=== PATIENT | female | born 1950 | race Two or more races ===

== ENCOUNTER → 2024-03-22 | Outpatient (CLI) | payer MEDICARE, MEDICAID, SELFPAY ==
--- NOTE | 2024-03-22 12:20 | XR_ITS ---
Examination: Bone densitometry Date and time of exam:March 22, 2024 1232 hrs. Indications: Menopause age 38% history osteoporosis vitamin D several months rheumatoid arthritis diagnosis Technique: Lumbar spine and hip total bone mineralization values of an calculated. Peak reference and age match control results have been displayed. Findings: Lumbar spine total bone mineralization is0.949 gm/cm2. This is 0.9 standard deviations below peak reference. This is 1.4 standard deviations above age-matched controls. Hip total bone mineralization is 0.597 gm/cm2 This is 2.7 standard deviations below peak reference. This is 1.0 standard deviations below age-matched controls Impression: There is normal mineralization based on lumbar spine measurements. There is osteoporosis based on hip measurements Lumbar mineralization is increased 4.8% compared with May 21, 2021 Hip mineralization is increased 11.4% compared with May 21, 2021
== END | disposition home or self-care (01) ==
PROVIDERS: PCP Physician Assistant; Referring Provider Physician Assistant; Visit Provider Physician Assistant
DX: M81.0 Age-related osteoporosis without current pathological fracture (principal)
CPT/HCPCS: 77080

== ENCOUNTER → 2024-04-11 | Outpatient (CLI) | payer MEDICARE, MEDICAID, SELFPAY ==
--- NOTE | 2024-04-11 | XR_ITS ---
Examination: Diagnostic digital mammography, unilateral, left Computer aided detection 3-D breast Tomosynthesis, unilateral Date and time of exam: April 11, 2024 10:40 AM INDICATIONS: Mammogram September 16, 2023 15 mm oval mass retroareolar region left breast Technique: Nonmagnified MLO, CC views of the left breast have been obtained, reconstructed from 3-D Tomosynthesis images. R2 computer aided detection program utilized for evaluation of suspicious masses and/or abnormal calcifications. 3-D Tomosynthesis images obtained. Findings: The breast is heterogeneously dense, which may obscure small masses Focal asymmetry remains retroareolar region left breast, 24 mm Impression: BI-RADS category 0: Incomplete: Need additional imaging evaluation This patient should return for repeat dedicated left breast sonography with the radiologist in attendance
--- NOTE | 2024-04-11 11:30 | XR_ITS ---
Examination: Breast ultrasound, unilateral, left complete Date and time of exam: April 11, 2019 5:10 AM INDICATIONS: Left breast sonogram September 16, 2023 2:00 retroareolar oval mass 13 x 12 mm Technique: Real-time scales scale ultrasonographic imaging performed left breast including all 4 quadrants as well as nipple retroareolar and axillary region. Findings: No cystic or solid mass currently IMPRESSION: BI-RADS Category 1: Negative study
== END | disposition home or self-care (01) ==
PROVIDERS: PCP Physician Assistant; Referring Provider Physician Assistant; Visit Provider Physician Assistant
DX: N63.42 Unspecified lump in left breast, subareolar (principal)
CPT/HCPCS: 76641; 77061; 77065; G0279

== ENCOUNTER → 2024-05-31 | Outpatient (CLI) | payer MEDICARE, MEDICAID, SELFPAY ==
[2024-05-31 16:40] LABS: Basophils % (Auto) 0 % (0-2.5); Eosinophils # (Auto) 0.1 Thou/mm3 (0.0-0.5); Eosinophils % (Auto) 1 % (0-10); Hematocrit 28.2 % (36.0-46.0); Hemoglobin 9.5 g/dL (12.0-16.0); Immature Granulocytes % (Auto) 0 % (0-0); Immature Granulocytes Auto 0.02 Thou/mm3 (0.00-0.00); Lymphocytes # (Auto) 1.5 Thou/mm3 (1.0-4.8); Lymphocytes % (Auto) 23 % (10-50); Mean Corpuscular HGB Conc 33.7 g/dl (31.0-37.0); Mean Corpuscular Hemoglobin 27.9 pg (25.0-35.0); Mean Corpuscular Volume 83 fL (80-100); Monocytes # (Auto) 0.5 Thou/mm3 (0.0-0.8); Monocytes % (Auto) 8 % (0-12); Neutrophils # (Auto) 4.5 Thou/mm3 (1.8-7.7); Neutrophils % (Auto) 67 % (37-80); Nucleated Red Blood Cell % 0 /100 WBC (0); Platelet Count 304 Thou/mm3 (140-440); RDW Standard Deviation 48.2 fL (36.4-46.3); Red Blood Count 3.41 Miln/mm3 (4.00-5.20); White Blood Count 6.7 Thou/mm3 (3.6-11.0)
[2024-05-31 17:07] LABS: Anion Gap 8 (7-16); BUN/Creatinine Ratio 27 Ratio (12-20); Blood Urea Nitrogen 24 mg/dL (9-23); Calcium 9.4 mg/dL (8.3-10.6); Carbon Dioxide 27.1 mMol/L (20.0-31.0); Chloride 103 mMol/L (98-107); Creatinine (Component) 0.9 mg/dL (0.6-1.3); Glucose 147 mg/dL (74-106); Osmolality,Calculated 282 (275-295); Potassium 4.2 mMol/L (3.4-5.1); Sodium 138 mMol/L (136-145); eGFR > 60 See Note
[2024-05-31 17:28] LABS: Partial Thromboplastin Time 27.2 Seconds (22.0-36.0)
== END | disposition home or self-care (01) ==
LOC: COPL 16:05
PROVIDERS: PCP Physician Assistant; Referring Provider Internal Medicine; Visit Provider Internal Medicine
DX: I25.10 Atherosclerotic heart disease of native coronary artery without angina pectoris (principal); I48.91 Unspecified atrial fibrillation
CPT/HCPCS: 36415; 80048; 85025; 85610; 85730

== ENCOUNTER 2024-09-22 10:40 | Emergency (ER) | payer MEDICARE, MEDICAID, SELFPAY ==
[2024-09-22 10:41] VITALS: BMI 24.5
[2024-09-22 10:54] VITALS: BP 158/76; PULSE 88; RESP 18; TEMP 37.2; O2SAT 99
--- NOTE | 2024-09-22 11:10 | XR_ITS ---
Examination: Shoulder,left, 3 views Technique: Shoulder AP internal rotation, AP external rotation, Y view shoulder, 3 views Exam date and time :September 22, 2024 1137 hours INDICATION: Patient fell out of bed today with injury to the shoulder, shoulder pain. FINDINGS: Old healed fracture humeral neck Severe osteopenia No acute fracture IMPRESSION: No acute fracture Given the severe osteopenia, repeat this study short-term 1-2 days as clinically warranted
--- NOTE | 2024-09-22 11:12 | PD.EDUPEX ---
Upper Extremity Injury RME/HPI General Chief Complaint: Extremity Injury, Upper Stated Complaint: LEFT SHOULDER PAIN S/P FALL Time Seen by Provider: 09/22/24 10:47 Source: patient Arrival date/time: 09/22/24 10:40 73-year-old female with a history of hyperlipidemia, hypertension, type 2 diabetes, presents to the emergency room with a chief complaint of left shoulder pain after a ground-level fall where her left knee slipped and she fell and hit herself against the door. Patient denies any head trauma or head injury Mode of arrival: ambulatory Limitations: no limitations Related Data Home Medications ?Medication ?Instructions ?Recorded ?Confirmed clopidogrel 75 mg tablet (Plavix) 75 mg PO DAILY 30 days ##0 11/10/10 04/30/20 atorvastatin 10 mg tablet (Lipitor) 10 mg PO HS #0 tabs 02/22/15 04/30/20 sertraline 50 mg tablet (Zoloft) 50 mg PO HS #0 tabs 02/22/15 04/30/20 sitagliptin phosphate 100 mg 100 mg PO QDAY #0 tabs 09/17/15 04/30/20 tablet (Januvia) aspirin 81 mg tablet,delayed 81 mg PO QDAY 07/14/17 04/30/20 release metformin 1,000 mg tablet 1,000 mg PO BID 07/14/17 04/30/20 hydrocodone 5 mg-acetaminophen 325 1 tab PO QID PRN Pain 09/07/17 04/30/20 mg tablet ([place]) amlodipine 2.5 mg tablet 2.5 mg PO QDAY 04/23/20 04/30/20 canagliflozin 300 mg tablet 300 mg PO QAM 04/23/20 04/30/20 (Invokana) gabapentin 300 mg capsule 300 mg PO DAILY 04/23/20 04/30/20 Previous Rx's ?Medication ?Instructions ?Recorded insulin glargine 100 unit/mL 20 unit (0.2 mL) subcut QPM #0 mL 05/05/20 subcutaneous solution (Lantus U-100 Insulin) hydrocodone 5 mg-acetaminophen 325 0.5 tab PO Q6H PRN pain #7 tabs 09/11/20 mg tablet ibuprofen 600 mg tablet 600 mg PO Q6H PRN pain #60 tabs 09/26/23 Allergies Allergy/AdvReac Type Severity Reaction Status Date / Time No Known Allergies Allergy Verified 09/22/24 10:43 Review of Systems Review of Systems Systems Reviewed: All systems reviewed, normal except as documented Constitutional Constitutional: Reports system reviewed and no additional complaints, except as documented, Denies fatigue, Denies fever(s), Denies headache(s) and Denies weakness Eyes Eyes: Reports system reviewed and no additional complaints, except as documented, Denies blurry vision and Denies change in vision ENT Ears, Nose, Mouth, and Throat: Reports system reviewed and no additional complaints, except as documented, Denies otalgia, Denies headache(s), Denies nasal congestion, Denies throat swelling and Denies vertigo Cardiovascular Cardiovascular: Reports system reviewed and no additional complaints, except as documented, Denies chest pain, Denies dyspnea and Denies dyspnea on exertion Respiratory Respiratory: Reports system reviewed and no additional complaints, except as documented, Denies chest congestion, Denies cough, Denies dyspnea, Denies dyspnea on exertion and Denies wheezing Gastrointestinal Gastrointestinal: Reports system reviewed and no additional complaints, except as documented, Denies abdominal pain, Denies cramping, Denies nausea and Denies vomiting Genitourinary Genitourinary: Reports system reviewed and no additional complaints, except as documented Musculoskeletal Musculoskeletal: Reports system reviewed and no additional complaints, except as documented, Reports arthralgias, Denies back pain, Reports joint swelling and Reports limited range of motion Integumentary/Breasts Skin/Breast: Reports system reviewed and no additional complaints, except as documented and Denies wounds Neurologic Neurologic: Reports system reviewed and no additional complaints, except as documented, Denies confusion, Denies headache(s), Denies lack of coordination, Denies vertigo and Denies weakness Psychiatric Psychiatric: Reports system reviewed and no additional complaints, except as documented, Denies anxiety, Denies confusion, Denies depression, Denies paranoia, Denies suicidal ideation and Denies tactile hallucinations Endocrine Endocrine: Reports system reviewed and no additional complaints, except as documented and Denies fatigue Hematologic/Lymphatic Hematologic/Lymphatic: Reports system reviewed and no additional complaints, except as documented and Denies lymphadenopathy Allergic/Immunologic Allergic/Immunologic: Reports system reviewed and no additional complaints, except as documented, Denies throat swelling, Denies urticaria and Denies wheezing Past Medical History Past Medical History NEUROLOGIC: Negative Neurological Disorders or Seizures CARDIAC: Positive Cardiac Disorders, Coronary Artery Disease, Hypercholesterolemia and Hypertension; Negative Myocardial Infarction, Atrial Fibrillation or Congestive Heart Failure RESPIRATORY: Negative Chronic Obstructive Pulmonary Disease (COPD), Asthma, Pneumonia or Sleep Apnea GASTROINTESTINAL: Positive Gastrointestinal Disorders and Gall Bladder Disease GENITOURINARY: Negative Genitourinary Disorders or Renal Disease MUSCULOSKELETAL: Positive Musculoskeletal Disorders, Arthritis, Rheumatoid Arthritis and Osteoporosis ENT: Negative Cataracts ENDOCRINE: Positive Endocrine Disorders and Diabetes Mellitus Type 2; Negative Diabetes Mellitus Type 1 HEMATOLOGIC: Negative Blood Disorders, Anemia or Sickle Cell Disease OTHER HISTORY: Positive Chicken Pox; Negative Blood Transfusions, Anesthesia Reactions, Chemotherapy, MRSA, Clostridium Difficile or Cancer Surgical History SURGICAL: Positive Cardiac Surgery, Coronary Stent, Cardiac Catheterization, Abdominal Surgery and Hysterectomy; Negative Pacemaker or Joint Replacement Social History SMOKING STATUS: Never smoker ED Exam General Limitations: Present no limitations General appearance: Present alert and in no apparent distress Head Head exam: Present atraumatic Eye Eye exam: Present normal appearance, PERRL and EOMI ENT ENT exam: Present normal exam, normal oropharynx and mucous membranes moist Neck Neck exam: Present normal inspection, full ROM and trachea midline Chest Chest inspection: Present normal inspection and symmetric chest wall rise Respiratory Respiratory exam: Present normal lung sounds bilaterally Cardiovascular Cardiovascular exam: Present regular rate, normal rhythm and normal heart sounds Abdominal Exam Abdominal exam: Present soft and normal bowel sounds Extremities Exam Extremities exam: Present normal inspection and full ROM Expanded Upper Extremity Exam Shoulder exam: Present tenderness, swelling and tenderness over AC joint; Absent full ROM Back Exam Back exam: Present normal inspection and full ROM Neurological Exam Neurological exam: Present alert, oriented X3 and CN II-XII intact Psychiatric Psychiatric exam: Present normal affect and normal mood Skin Skin exam: Present warm, dry, intact and normal color Course Quality Measures none Orders Category Date Time Status sling [Splint / Immobilizer] STAT Care 09/22/24 11:10 Active XR clavicle LT Stat Exams 09/22/24 11:13 Completed XR shoulder LT min 2V Stat Exams 09/22/24 11:10 Completed Acetaminophen Tab [Tylenol Tab] Med 09/22/24 11:17 Discontinued 650 mg PO X1 ONE Ketorolac Inj [Toradol Inj] Med 09/22/24 11:10 Discontinued 30 mg IM X1 ONE Vital Signs Vital signs: Vital Signs Temperature 98.9 F 09/22/24 10:54 Pulse Rate 88 09/22/24 10:54 Respiratory Rate 18 09/22/24 10:54 Blood Pressure 158/76 H 09/22/24 10:54 Pulse Oximetry (%) 99 09/22/24 10:54 Oxygen Delivery Method Room Air 09/22/24 10:54 O2 saturation 99% within normal limits Extremity Injury MDM Narrative MDM Narrative:: 73-year-old female with a history of hyperlipidemia, hypertension, type 2 diabetes, presents to the emergency room with a chief complaint of left shoulder pain after a ground-level fall where her left knee slipped and she fell and hit herself against the door. Patient denies any head trauma or head injury Patient is hemodynamically stable and in no apparent distress Physical examination shows tenderness and pain to the AC joint on the left shoulder. The patient is able to lift it up to her chest but cannot lift her arm above her head. Patient states when she does not move the shoulder she is having no pain. There is no obvious deformity X-ray of the shoulder and clavicle were negative for any acute fractures or dislocations. The patient was educated to follow-up with her primary care provider if the signs and symptoms continue as there could be some ligament damage or tears Patient was discharged and educated to follow-up with primary care provider in the next 24 to 48 hours and return to the emergency room for any evidence of worsening signs or symptoms Patient data External records reviewed:: [facility] previous records Clinical information provided by:: patient Social determinants that could affect healthcare access:: none Patient has the following chronic illnesses:: Hypertension, hyperlipidemia, type 2 diabetes How is presenting disease/condition affected by chronic disease/condition?: uneffected by Evaluation data The following diagnostics were reviewed and interpreted by me:: lab results and radiology exam(s) Lab and/or radiology exams considered but not ordered:: Labs and radiology exams considered and ordered Interpretation Summary: Left shoulder [id number]: Old healed fracture humeral neck Severe osteopenia No acute fracture IMPRESSION: No acute fracture Given the severe osteopenia, repeat this study short-term 1-2 days as clinically warranted Medications / Prescriptions Medications or Prescriptions considered but not ordered:: Medication given Medication administrations:: Medication Administration History Discontinued Medications Acetaminophen (Acetaminophen 325 Mg Tablet) 650 mg PO X1 ONE Stop: 09/22/24 11:18 Last Admin: 09/22/24 11:33 Dose: 650 mg Documented By: EF Ketorolac Tromethamine (Ketorolac Inj 60 Mg/2 Ml Vial) 30 mg IM X1 ONE Stop: 09/22/24 11:11 Last Admin: 09/22/24 11:34 Dose: Not Given Documented By: EF Non-Admin Reason: Cancelled by Provider Medication given Consultations Consultation(s) initiated? (list below): No Diagnosis Upper Extremity Injury Differential Diagnosis: dislocation of shoulder, fracture of clavicle and other (Shoulder fracture/shoulder sprain) Most likely diagnosis given after review of the tests above:: Shoulder sprain Admission Indicated Admission indicated?: not indicated Admission Request Was there a request for admission?: No Disposition Plan Disposition Plan: Discharge Discharge Attestation Discharge Attestation: The patient and all family members were given an opportunity to ask questions and understood the discharge instructions. Discharge instructions specifically effects, indications for sooner follow up or return to the emergency department, and the expected course of current diagnosis. Patient condition: Stable Discharge Plan Plan Patient Disposition: HOME (Self Care) Discharge Disposition comment: Stable Prescriptions/Referrals Prescriptions/Med Rec: No Action clopidogrel [Plavix] 75 MG tablet 75 mg PO DAILY 30 Days Qty: 0 atorvastatin [Lipitor] 10 MG tablet 10 mg PO HS Qty: 0 sertraline [Zoloft] 50 MG tablet 50 mg PO HS Qty: 0 Januvia 100 MG tablet 100 mg PO QDAY Qty: 0 amlodipine 2.5 mg Tablet 2.5 mg PO QDAY gabapentin 300 mg Capsule 300 mg PO DAILY Invokana 300 mg Tablet 300 mg PO QAM Lantus U-100 Insulin 100 unit/mL Solution 20 unit SUBCUT QPM Qty: 0 0RF hydrocodone-acetaminophen 5-325 mg tablet 0.5 tab PO Q6H MDD 3 PRN (Reason: pain) Qty: 7 0RF aspirin 81 mg Tablet,Delayed Release (Dr/Ec) 81 mg PO QDAY metformin 1,000 mg Tablet 1,000 mg PO BID hydrocodone-acetaminophen [[place]] 5-325 mg Tablet 1 tab PO QID PRN (Reason: Pain) ibuprofen 600 mg tablet 600 mg PO Q6H PRN (Reason: pain) Qty: 60 0RF Referrals: Heidi Martins PA-C [Primary Care Provider] - In 1 week Problem List Clinical Impression: Shoulder sprain Patient/Caregiver Discharge Instructions Education Materials: ED Shoulder Sprain Additional Instructions: Please follow-up with your primary care provider in the next 24 to 48 hours The x-rays of your shoulder were completed and were negative for any acute fracture or dislocation. If your signs symptoms continue you will need to have an MRI of your shoulder to assess for any ligament damage or tears For any evidence of worsening signs or symptoms return to the emergency room immediately Print Language: Finnish Stand Alone Forms: Marcelle Award Info., Patient Portal Info Letter PA/HAND UMBRELLA TIPPER Supervising Physician PA/HAND UMBRELLA TIPPER Supervising Physician: Dr. Wisdom
--- NOTE | 2024-09-22 11:13 | XR_ITS ---
Examination: Clavicle 2 views, left Technique: Clavicle AP, angled up AP, 2 views Exam date and time: September 22, 2024 1137 hours INDICATIONS: Patient fell out of bed today with injury to the clavicle, clavicle pain FINDINGS: Severe osteopenia. No clavicle fracture. No AC joint separation IMPRESSION: No clavicle fracture
[2024-09-22] MEDS: ACETAMINOPHEN 325 MG TABLET 650 MG PO (11:33)
== END 2024-09-22 12:45 | disposition home or self-care (01) ==
PROVIDERS: Emergency Provider Family Medicine; PCP Physician Assistant
DX: S43.402A Unspecified sprain of left shoulder joint, initial encounter (principal); W18.30XA Fall on same level, unspecified, initial encounter; E11.9 Type 2 diabetes mellitus without complications; E78.5 Hyperlipidemia, unspecified; I10 Essential (primary) hypertension; M85.812 Other specified disorders of bone density and structure, left shoulder
CPT/HCPCS: 73000; 73030; 99283; A9270

== ENCOUNTER → 2025-03-02 | Outpatient (CLI) | payer MEDICARE, MEDICAID, SELFPAY | END | disposition home or self-care (01) | LOC: SLDO 14:24 | PROVIDERS: Referring Provider Urology; Visit Provider Urology | DX: N39.0 Urinary tract infection, site not specified (principal) | CPT/HCPCS: 87077; 87086; 87186 ==

== ENCOUNTER → 2025-03-02 | Outpatient (BNVA) | payer MEDICARE, MEDICAID, SELFPAY | END | disposition home or self-care (01) | PROVIDERS: PCP Physician Assistant; Referring Provider Physician Assistant; Visit Provider Urology | DX: N39.0 Urinary tract infection, site not specified (principal); E11.9 Type 2 diabetes mellitus without complications; I10 Essential (primary) hypertension; I25.10 Atherosclerotic heart disease of native coronary artery without angina pectoris; E66.9 Obesity, unspecified; Z68.27 Body mass index [BMI] 27.0-27.9, adult | CPT/HCPCS: 81003; 99212; G0463 ==